=== PATIENT | female | born 1940 | race Caucasian/White ===

== ENCOUNTER 2019-12-21 15:48 | Emergency (ER) | payer MEDICARE, MEDICAID, SELFPAY ==
[2019-12-21 15:59] VITALS: BP 106/60; PULSE 73; RESP 14; TEMP 36.6; O2SAT 99; BMI 23.2
[2019-12-21 17:57] LABS: Basophils % 0.6 %; Eosinophils # 0.1 10^3/uL (0.0-0.8); Eosinophils % 1.6 %; Hematocrit 40.9 % (37.0-47.0); Hemoglobin 13.3 g/dL (11.5-15.3); Lymphocytes # 1.8 10^3/uL (0.8-4.8); Lymphocytes % 28.4 %; Mean Corpuscular HGB Conc 32.5 g/dL (30.0-36.0); Mean Corpuscular Hemoglobin 28.9 pg (28.0-34.0); Mean Corpuscular Volume 88.7 fL (81-99); Mean Platelet Volume 11.1 fL (7.4-10.4); Monocytes # 0.4 10^3/uL (0.2-0.9); Monocytes % 6.1 %; Neutrophils # 4.05 10^3/uL (1.8-7.7); Neutrophils % 63.1 %; Nucleated Red Blood Cells % 0 %; Platelet Count 211 10^3/cmm (130-400); Red Blood Count 4.61 10^6/uL (4.1-5.3); Red Cell Distribution Width 14.5 % (12.1-15.1); White Blood Count 6.4 10^3/uL (4.0-10.0)
[2019-12-21 18:22] LABS: Alanine Aminotransferase 10 U/L (0-33); Albumin Level 3.9 g/dL (3.5-5.2); Alkaline Phosphatase 90 IU/L (35-105); Anion Gap 15.7 (5-19); Aspartate Amino Transferase 21 U/L (0-32); Blood Urea Nitrogen 20 mg/dL (8-23); Calcium 9.7 mg/dL (8.5-10.5); Carbon Dioxide 26 mmol/L (22-29); Chloride 99 mmol/L (98-107); Globulin 3.2 g/dL (1.3-4.6); Glucose 193 mg/dL (65-115); Lipase 64 U/L (13-60); Osmolality Calculated 290 mOsm/kg (285-295); Potassium 4.7 mmol/L (3.5-5.1); Sodium 136 mmol/L (136-145); Total Bilirubin 0.5 mg/dL (0.15-1.2); Total Protein 7.1 g/dL (6.6-8.7)
--- NOTE | 2019-12-21 18:43 | CTR_ITS ---
PROCEDURE INFORMATION: Exam: CT Abdomen And Pelvis Without Contrast Exam date and time: 12/21/2019 7:41 PM Age: 79 years old Clinical indication: Nausea; Abdominal pain; Localized; Lower; Prior surgery; Surgery type: Tubal TECHNIQUE: Imaging protocol: Computed tomography of the abdomen and pelvis without contrast. Sagittal and coronal reformatted images were created and reviewed. Radiation optimization: All CT scans at this facility use at least one of these dose optimization techniques: automated exposure control; mA and/or kV adjustment per patient size (includes targeted exams where dose is matched to clinical indication); or iterative reconstruction. COMPARISON: CT abdomen pelvis w con* [id number] 02/14/2019 10:52 AM RADIATION DOSE METRICS: Total DLP (mGy-cm): 304.68 FINDINGS: Limitations: Evaluation of solid organs and vasculature is limited without intravenous contrast. Lungs: Visualized lungs are clear. Stable scarring and bronchiectatic changes in both visualized right and left lower lobes. Pleural space: No pleural effusion. Heart: Visualized portions of the heart are mildly enlarged. Liver: Multiple calcified granulomas in the liver are stable.The spleen is unremarkable. Gallbladder and bile ducts: Mildly increased density layering in the gallbladder. No biliary ductal dilatation. Pancreas: The pancreas is unremarkable. No pancreatic ductal dilatation. Spleen: The spleen is unremarkable. Adrenals: The right and left adrenal glands are unremarkable. Kidneys and ureters: The right and left kidneys are unremarkable. The right and left ureters are unremarkable. Stomach and bowel: There is moderate wall thickening with surrounding mild to moderate inflammatory change of the proximal/mid sigmoid colon. Mobile cecum extending into the left mid abdomen. No acute abnormality in the small bowel. No acute abnormality in the stomach. Appendix: Appendix not definitely visualized. No inflammatory changes in the pericecal region however. Intraperitoneal space: No free intraperitoneal air. No ascites. No loculated fluid collections to suggest an abscess. Surgical clip in the left groin is unchanged. Vasculature: Moderate atherosclerotic calcification in the coronary arteries. Moderate atherosclerotic changes in the visualized arteries. No evidence for aortic aneurysm. Lymph nodes: No lymphadenopathy. Urinary bladder: Diffuse, mild wall thickening of the bladder. Reproductive: Patient has had a previous hysterectomy. The right ovary is unremarkable. Stable 8.7 mm follicle in the left ovary. Bones/joints: Poststernotomy changes in the chest are partially visualized. Bones are diffusely osteopenic. Mild degenerative changes at both the right and left hips. Mild degenerative changes of the right and left sacroiliac joints. Multilevel degenerative changes of varying severity in the visualized spine. Soft tissues: No acute abnormality in the extra-abdominal soft tissues. CT/CT abdomen pelvis wo con [id number] IMPRESSION: 1. Findings consistent with moderate colitis in the proximal/mid sigmoid colon. 2. Mildly increased density layering in the gallbladder. This could represent noncalcified gallstones and/or gallbladder sludge. Ultrasound of the gallbladder may be obtained for further evaluation as clinically indicated. 3. Diffuse, mild wall thickening of the bladder. In the correct clinical setting, this may suggest cystitis. Recommend correlation with laboratory findings. Alternatively, this may be secondary to chronic outlet obstruction. 4. Mobile cecum extending into the left mid abdomen. 5. Incidental/nonacute findings are listed in the report. Radiation Dose CTDIVOL = (mGy): DLP = 304.68 (mGy-cm)
--- NOTE | 2019-12-21 18:44 | ED_ITS ---
HPI - Abdominal Pain General: Chief Complaint: Abdominal Pain Stated Complaint: LOWER ABD CRAMPS RADIATING TO BACK Time Seen by Provider: 12/21/19 18:40 History of Present Illness: HPI narrative: Arrives with a history of abdominal pain over the last few days was seen by her primary care provider and put on antibiotics pain is only worsened not improved. Patient has pain is worse with laying down and moving has severe cramping. Radiates to her back patient denies any vomiting fever chills or dysuria MD elicited complaint: abdominal pain Pertinent past history: constipation Onset (ago): day(s) Pain Consistency: constant Location: Diffuse Severity: moderate Quality: cramping and aching Radiation: back Migration to: no migration Exacerbating factors: movement Relieving factors: other (Sitting up) Context: recent antibiotic use Associated Symptoms: Reports no associated symptoms; Denies chills, fever(s), nausea and vomiting Review of Systems Const: Denies: fever(s), chills or body aches Eyes: Denies: change in vision or blurry vision ENMT: Denies: throat pain or nasal congestion Card: Denies: chest pain or dyspnea on exertion Resp: Denies: dyspnea, productive cough or non-productive cough GI: Reports: abdominal pain; Denies: nausea or vomiting Musc: Denies: extremity pain Skin/Breast: Denies: rash Neuro: Denies: headache(s) Psych: Denies: anxiety or depression Dominguez/Lymph: Denies: easy bruising PFS ED PFSH: Medical History (Updated 12/21/19 @ 20:38 by ARLEY Carlson) ASHD (arteriosclerotic heart disease) Atrial fibrillation Diabetes Dyslipidemia HTN (hypertension) Surgical History S/P CABG (coronary artery bypass graft) Family History Other Diabetes Stroke Social History Smoking and tobacco status: never smoked Household members: children Marital status: / Physical Exam Const: COMMON NORMALS: no acute distress, average body habitus and patient oriented x3 HENMT: COMMON NORMALS: normocephalic HEAD & SCALP: normal to inspection and normocephalic FACE & SINUS: normal facial exam Eye: COMMON NORMALS: conjunctivae normal GENERAL EYE: appearance normal, both eyes and all related structures CONJUNCTIVA: Yes conjunctivae normal Neck/C-Spine: COMMON NORMALS: no JVD Chest: COMMONS NORMALS: normal inspection of the chest Resp: COMMON NORMALS: normal respiratory effort and clear to auscultation bilaterally AUSCULTATION: clear to auscultation bilaterally Cardio: COMMON NORMALS: no JVD, regular rate and regular rhythm RATE: regular rate RHYTHM: regular rhythm GI: COMMON NORMALS: Normal to inspection, nondistended, normoactive bowel sounds present PALPATION: Yes Tenderness to palpation present (GI) Details: LLQ and RLQ Extremity: COMMON NORMALS: normal to inspection and full ROM Neuro: COMMON NORMALS: patient oriented x3 Course Vital Signs: Vital signs: Vital Signs Temperature 97.8 F 12/21/19 15:59 Pulse Rate 64 12/21/19 21:00 Respiratory Rate 18 12/21/19 21:00 Blood Pressure 154/98 12/21/19 21:00 Pulse Oximetry 98 12/21/19 21:00 MDM - Abdominal Pain MDM Narrative: Medical decision making narrative: Discussed results of the CT results with patient patient that she has has bouts 2-3 times a year she said this 1 does seem to last longer she said antibiotics were not helping this time. Advised patient to follow-up with her provider repeat lab test to have radiology test done discussed chronic medication for help Differential Diagnosis: Differential diagnosis abdominal pain: Likely abdominal pain, constipation, diverticulitis and small bowel obstruction Lab Data: Labs: Lab Results 12/21/19 12/21/19 12/21/19 Range/Units 17:44 17:44 19:05 WBC 6.4 (4.0-10.0) 10^3/ uL RBC 4.61 (4.1-5.3) 10^6/u L Hgb 13.3 (11.5-15.3) g/dL Hct 40.9 (37.0-47.0) % MCV 88.7 (81-99) fL MCH 28.9 (28.0-34.0) pg MCHC 32.5 (30.0-36.0) g/dL RDW 14.5 (12.1-15.1) % Plt Count 211 (130-400) 10^3/c mm MPV 11.1 H (7.4-10.4) fL Neut % (Auto) 63.1 % Lymph % (Auto) 28.4 % [place] % (Auto) 6.1 % Eos % (Auto) 1.6 % Baso % (Auto) 0.6 % Neut # (Auto) 4.05 (1.8-7.7) 10^3/u L Lymph # (Auto) 1.8 (0.8-4.8) 10^3/u L [place] # (Auto) 0.4 (0.2-0.9) 10^3/u L Eos # (Auto) 0.1 (0.0-0.8) 10^3/u L Baso # (Auto) 0.0 (0.0-0.1) 10^3/u L Nucleated RBC % (a uto) 0 % Nucleated RBCs # 0.0 /100WBC Sodium 136 (136-145) mmol/L Potassium 4.7 (3.5-5.1) mmol/L Chloride 99 (98-107) mmol/L Carbon Dioxide 26 (22-29) mmol/L Anion Gap 15.7 (5-19) BUN 20 (8-23) mg/dL Creatinine 1.8 H (0.5-0.9) mg/dL GFR Calculation Not Reportable Glucose 193 H (65-115) mg/dL Calculated Osmolal ity 290 (285-295) mOsm/k g Calcium 9.7 (8.5-10.5) mg/dL Total Bilirubin 0.5 (0.15-1.2) mg/dL AST 21 (0-32) U/L ALT 10 (0-33) U/L Alkaline Phosphata se 90 (35-105) IU/L Total Protein 7.1 (6.6-8.7) g/dL Albumin 3.9 (3.5-5.2) g/dL Globulin 3.2 (1.3-4.6) g/dL Lipase 64 H (13-60) U/L Urine Color Straw (Yellow) Urine Appearance Clear (CLEAR) Urine pH 6.5 (5-7) Ur Specific Gravit y 1.005 (1.005-1.030) Urine Protein Neg (Negative) Urine Glucose (UA) Norm (Normal) Urine Ketones Negative (Negative) Urine Blood Trace H (Negative) Urine Nitrate Negative (Negative) Urine Bilirubin Neg (Negative) Urine Urobilinogen Norm (Negative) mg/dL Ur Leukocyte Ginny ase Negative (Negative) Urine RBC 0-4 H (0-2) /hpf Urine WBC 10-15 H (0-5) /hpf Ur Squamous Epith Cells 0-4 H (0-5) /hpf Amorphous Sediment Not Reportable Urine Bacteria Trace (NONE) /hpf Discharge Plan Discharge Patient Disposition: Home Clinical Impression: Colitis Condition: Stable Prescriptions: New metoclopramide HCl 10 mg tablet 10 mg PO QID 7 Days Qty: 28 RF: 0 Zofran 4 mg tablet 4 mg PO Q8H PRN (Reason: nausea and vomiting) 3 Days Qty: 14 RF: 0 No Action omega-3 fatty acids [Fish Oil Concentrate] 1,000 mg capsule 1,000 mg PO DAILY RF: 0 Lantus U-100 Insulin 100 unit/mL solution See Rx Instructions SUBCUT DAILY RF: 0 magnesium oxide 400 mg magnesium tablet 200 mg PO DAILY RF: 0 aspirin [Adult Low Dose Aspirin] 81 mg tablet,delayed release (DR/EC) 81 mg PO DAILY RF: 0 rosuvastatin [Crestor] 40 mg tablet 40 mg PO DAILY RF: 0 docusate sodium 100 mg capsule 100 mg PO DAILY PRN (Reason: Constipation) RF: 0 lisinopril 30 mg tablet 30 mg PO DAILY RF: 0 Multiple Vitamins Tablet 1 tab PO DAILY RF: 0 latanoprost 0.005 % drops 1 drp ophthalmic (eye) BEDTIME RF: 0 clindamycin HCl 300 mg capsule 300 mg PO TID RF: 0 ondansetron HCl 4 mg tablet 4 - 8 mg PO Q8H PRN (Reason: Nausea) RF: 0 Discharge Orders: Discharge Order (Routine); Ordered 12/21/19 Ordered By: New Payne Referrals: Zuly Franklin FNP [Primary Care Provider] - Discharge Diet: Advance as tolerated Discharge Activity: Increase activity as tolerated Patient Instructions: Irritable Bowel Syndrome (ED) Activity Restrictions/Additional Instructions: Follow-up with medical provider as directed. Take medications as prescribed. Return to the ER or your medical provider if condition worsens. Please read and understand discharge instructions. If any questions ask please. Follow-up with your provider next week go over labs go over radiology see if you need a gallbladder ultrasound repeat lab test next week Discharge Date/Time: 12/21/19 21:00 Coding Level of Care Code ED Nuclear Licensing Engineer for Chg Fwd Exam Comprehensive
[2019-12-21 19:21] LABS: Add Urine Microscopic? YES; Bilirubin Urine Neg (Negative); Blood Urine Trace (Negative); Glucose Urine UA Norm (Normal); Ketones Urine Negative (Negative); Leukocyte Esterase Urine Negative (Negative); Nitrate Urine Negative (Negative); Protein Urine Neg (Negative); Specific Gravity, Urine 1.005 (1.005-1.030); Urine Appearance Clear (CLEAR); Urine Color Straw (Yellow); Urobilinogen Urine Norm (Negative); pH Urine 6.5 (5-7)
[2019-12-21 19:23] LABS: Add Urine Culture? No; Bacteria Urine TRACE /hpf; RBC Urine 0-4 /hpf (0-2); Squamous Epithelial Cell Urine 0-4 /hpf (0-5)
[2019-12-21 19:28] VITALS: BP 148/93; PULSE 71; RESP 18; O2SAT 99
[2019-12-21] MEDS: dicyclomine 10 mg Capsule PO (20:59)
[2019-12-21 21:00] VITALS: BP 154/98; PULSE 64; RESP 18; O2SAT 98
== END 2019-12-21 21:00 | disposition home or self-care (01) ==
PROVIDERS: Emergency Provider Nurse Practitioner Family; Family Provider Nurse Practitioner Family; PCP Nurse Practitioner Family
DX: K52.9 Noninfective gastroenteritis and colitis, unspecified (principal); Z79.82 Long term (current) use of aspirin; Z79.899 Other long term (current) drug therapy; I48.91 Unspecified atrial fibrillation; E11.9 Type 2 diabetes mellitus without complications; E78.5 Hyperlipidemia, unspecified; I10 Essential (primary) hypertension; Z95.1 Presence of aortocoronary bypass graft
CPT/HCPCS: 12345; 36415; 74176; 80053; 81001; 83690; 85025; 99282; 99283

== ENCOUNTER → 2021-06-20 10:34 | Outpatient (BNVA) | payer MEDICARE, MEDICAID, SELFPAY | PROVIDERS: Family Provider Nurse Practitioner Family; PCP Nurse Practitioner Family; Referring Provider Nurse Practitioner Family; Visit Provider Orthopaedic Surgery | DX: S80.02XA Contusion of left knee, initial encounter (principal); W19.XXXA Unspecified fall, initial encounter | CPT/HCPCS: 73562; 99203 ==

== ENCOUNTER → 2021-07-13 15:08 | Outpatient (BNVA) | payer MEDICARE, MEDICAID, SELFPAY | PROVIDERS: Family Provider Nurse Practitioner Family; PCP Nurse Practitioner Family; Visit Provider Internal Medicine | DX: I48.91 Unspecified atrial fibrillation (principal); I25.10 Atherosclerotic heart disease of native coronary artery without angina pectoris; E11.9 Type 2 diabetes mellitus without complications; I10 Essential (primary) hypertension; E78.5 Hyperlipidemia, unspecified; I73.9 Peripheral vascular disease, unspecified; Z79.4 Long term (current) use of insulin | CPT/HCPCS: 99213; 99214 ==

== ENCOUNTER 2022-03-07 13:24 | Emergency (ER) | payer MEDICARE, MEDICAID, SELFPAY ==
[2022-03-07 13:26] VITALS: BP 92/53; PULSE 64; RESP 14; TEMP 36.6; O2SAT 98; BMI 34.5
--- NOTE | 2022-03-07 13:35 | ED_ITS ---
HPI - General Adult General: Chief complaint: General Medical Stated complaint: ABDOMINAL CRAMPING Time Seen by Provider: 03/07/22 13:35 History of Present Illness: Ms. Baird is an 81-year-old lady with history of diabetes, hypertension, atrial fibrillation, dyslipidemia presenting to the emergency department due to abdominal pain. She reports a few day history of generalized malaise associated with abdominal discomfort and diarrhea. She notes lightheadedness. Pain is cramping in quality and moderate in intensity as well as intermittent. No other specific changes in health, exacerbating, or alleviating factors identified. Onset (ago): day(s) Location: abdomen Severity: moderate Quality: other Pain Consistency: constant Relieving factors: none Exacerbating factors: eating Associated symptoms: Reports malaise, weakness and other Review of Systems General: Reports: 10 or more systems reviewed and unremarkable except in HPI and below Const: Reports: malaise PFS ED PFSH: Medical History ASHD (arteriosclerotic heart disease) Atrial fibrillation Diabetes Dyslipidemia HTN (hypertension) Surgical History S/P CABG (coronary artery bypass graft) Family History Other Diabetes Stroke Social History Smoking and tobacco status: never smoked Alcohol intake: never Household members: children Marital status: / Physical Exam Const: COMMON NORMALS: alert GENERAL APPEARANCE: cooperative and well developed HENMT: COMMON NORMALS: normocephalic and atraumatic HEAD & SCALP: normocephalic and atraumatic Eye: COMMON NORMALS: conjunctivae normal CONJUNCTIVA: Yes conjunctivae normal SCLERA: sclerae normal Neck/C-Spine: COMMON NORMALS: supple GENERAL: Yes trachea midline Resp: COMMON NORMALS: normal respiratory effort and clear to auscultation bilaterally EFFORT & INSPECTION: Yes able to speak in complete sentences AUSCULTATION: clear to auscultation bilaterally Cardio: COMMON NORMALS: regular rate and regular rhythm RATE: regular rate RHYTHM: regular rhythm GI: COMMON NORMALS: Soft to palpation PALPATION: Yes Soft to palpation, Yes Tenderness to palpation present (GI), No Guarding due to palpation present (GI) and No Rigid due to palpation PERCUSSION: normal to percussion Extremity: GENERAL: Yes normal exam except as noted and No edema Neuro: COMMON NORMALS: moves all extremities SENSORIUM/ORIENTATION: Yes alert and No Orientation impaired Psych: COMMON NORMALS: mental status grossly normal and Normal thought process present THOUGHT PROCESS: Normal thought process present Course Vital Signs: Vital signs: Vital Signs Temperature 97.9 F 03/07/22 13:26 Pulse Rate 67 03/07/22 18:00 Respiratory Rate 20 H 03/07/22 18:00 Blood Pressure 147/60 03/07/22 18:00 Pulse Oximetry 97 03/07/22 18:00 MDM - General Adult Medical Decision Making 81-year-old lady presented with abdominal symptoms associated with generalized malaise. Exam as above. No evidence of acute surgical abdomen or peritonitis. Patient is nontoxic. EKG notable for sinus rhythm, no STEMI. Labs with no leukocytosis, hemoconcentration compared to prior. Metabolic panel without acute electrolyte derangement. Delta troponin is negative. No UTI given squamous epithelial contamination. CT imaging notable for mild colitis. Incidental findings discussed with patient. Patient feels improved with IV fluids and she is able to tolerate p.o. take. Most likely etiology of patient's symptoms is colitis. The results of ED evaluation were discussed with the patient including prescriptions and/or symptomatic cares (if applicable) including appropriate and responsible use, followup plan, and return precautions. The patient verbalized understanding and felt safe for discharge. Medical Records I reviewed the patient's medical records. Lab Data I reviewed the patient's lab results. 03/07/22 14:12 03/07/22 14:12 Radiology Impressions Abdomen/Pelvis CT 03/07/22 14:54 IMPRESSION: 1. Findings consistent with mild colitis in the transverse colon. No pneumatosis. 2. Diffuse, mild wall thickening of the bladder. In the correct clinical setting, this may suggest cystitis. Recommend correlation with laboratory findings. Alternatively, this may be secondary to chronic outlet obstruction. 3. Incidental/nonacute findings are listed in the report. Laboratory Results WBC 9.5 10^3/uL (4.0-10.0) 03/07/22 14:12 RBC 5.39 10^6/uL (4.1-5.3) H 03/07/22 14:12 Hgb 16.9 g/dL (11.5-15.3) H 03/07/22 14:12 Hct 51.0 % (37.0-47.0) H 03/07/22 14:12 MCV 94.6 fl (81-99) 03/07/22 14:12 MCH 31.4 pg (28.0-34.0) 03/07/22 14:12 MCHC 33.1 g/dL (30.0-36.0) 03/07/22 14:12 RDW 12.3 % (12.1-15.1) 03/07/22 14:12 Plt Count 218 10^3/cmm (130-400) 03/07/22 14:12 MPV 11.5 fL (7.4-10.4) H 03/07/22 14:12 Neut % (Auto) 76.5 % 03/07/22 14:12 Lymph % (Auto) 16.8 % 03/07/22 14:12 [place] % (Auto) 5.3 % 03/07/22 14:12 Eos % (Auto) 0.7 % 03/07/22 14:12 Baso % (Auto) 0.5 % 03/07/22 14:12 Neut # (Auto) 7.26 10^3/uL (1.8-7.7) 03/07/22 14:12 Lymph # (Auto) 1.6 10^3/uL (0.8-4.8) 03/07/22 14:12 [place] # (Auto) 0.5 10^3/uL (0.2-0.9) 03/07/22 14:12 Eos # (Auto) 0.1 10^3/uL (0.0-0.8) 03/07/22 14:12 Baso # (Auto) 0.1 10^3/uL (0.0-0.1) 03/07/22 14:12 Nucleated RBC % (auto) 0 % 03/07/22 14:12 Nucleated RBCs # 0.0 /100WBC 03/07/22 14:12 Sodium 139 mmol/L (136-145) 03/07/22 14:12 Potassium 4.6 mmol/L (3.5-5.1) 03/07/22 14:12 Chloride 103 mmol/L (98-107) 03/07/22 14:12 Carbon Dioxide 25 mmol/L (22-29) 03/07/22 14:12 Anion Gap 15.6 (5-19) 03/07/22 14:12 BUN 21 mg/dL (8-23) 03/07/22 14:12 Creatinine 1.4 mg/dL (0.5-0.9) H 03/07/22 14:12 GFR Calculation Not Reportable 03/07/22 14:12 Glucose 151 mg/dL (65-115) H 03/07/22 14:12 Calculated Osmolality 294 mOsm/kg (285-295) 03/07/22 14:12 Lactate 1.9 mmol/L (0.5-2.2) 03/07/22 14:12 Calcium 9.7 mg/dL (8.5-10.5) 03/07/22 14:12 Total Bilirubin 0.6 mg/dL (0.15-1.2) 03/07/22 14:12 AST 24 U/L (0-32) 03/07/22 14:12 ALT 13 U/L (0-33) 03/07/22 14:12 Alkaline Phosphatase 98 U/L (35-105) 03/07/22 14:12 Troponin T Baseline 15 ng/L (0-10) H 03/07/22 14:12 Troponin T 120 Minute 13.88 ng/L (0-10) H 03/07/22 16:36 Delta Troponin T -1.12 ABS# (0-10) L 03/07/22 16:36 Total Protein 6.7 g/dL (6.6-8.7) 03/07/22 14:12 Albumin 3.8 g/dL (3.5-5.2) 03/07/22 14:12 Globulin 2.9 g/dL (1.3-4.6) 03/07/22 14:12 Lipase 55 U/L (13-60) 03/07/22 14:12 Urine Color Yellow (Yellow) 03/07/22 17:14 Urine Appearance Clear (CLEAR) 03/07/22 17:14 Urine pH 5 (5-7) 03/07/22 17:14 Ur Specific [place] 1.020 (1.005-1.030) 03/07/22 17:14 Urine Protein 1+ (Negative) H 03/07/22 17:14 Urine Glucose (UA) Trace (Normal) H 03/07/22 17:14 Urine Ketones Negative (Negative) 03/07/22 17:14 Urine Blood Neg (Negative) 03/07/22 17:14 Urine Nitrate Negative (Negative) 03/07/22 17:14 Urine Bilirubin Neg (Negative) 03/07/22 17:14 Urine Urobilinogen Norm mg/dL (Negative) 03/07/22 17:14 Ur Leukocyte Esterase 2+ (Negative) H 03/07/22 17:14 Urine RBC None /hpf (0-2) 03/07/22 17:14 Urine WBC 0-4 /hpf (0-5) H 03/07/22 17:14 Ur Squamous Epith Cells 5-10 /hpf (0-5) H 03/07/22 17:14 Amorphous Sediment Not Reportable 03/07/22 17:14 Urine Bacteria Trace /hpf (NONE) 03/07/22 17:14 Discharge Plan Discharge Patient Disposition: Home Clinical Impression: Colitis, Dehydration Condition: Stable Prescriptions: New ondansetron 4 mg tablet,disintegrating 4 mg PO Q8H PRN (Reason: nausea and vomiting) Qty: 15 0RF No Action Januvia 50 mg tablet 50 mg PO DAILY ferrous sulfate 325 mg (65 mg iron) tablet 325 mg PO DAILY Lantus U-100 Insulin 100 unit/mL solution 26 unit SUBCUT DAILY magnesium oxide 400 mg magnesium tablet 200 mg PO DAILY aspirin [Adult Low Dose Aspirin] 81 mg tablet,delayed release (DR/EC) 81 mg PO DAILY rosuvastatin [Crestor] 40 mg tablet 40 mg PO DAILY docusate sodium 100 mg capsule 100 mg PO DAILY PRN (Reason: Constipation) lisinopril 30 mg tablet 30 mg PO DAILY Xarelto 20 mg tablet 20 mg PO DAILY Qty: 90 3RF Rx Instructions: must administer with evening meal multivitamin [Multiple Vitamins] Tablet 1 tab PO DAILY latanoprost 0.005 % drops 1 drp ophthalmic (eye) BEDTIME omega-3 fatty acids 1,000 mg Capsule 1,000 mg PO DAILY Discharge Orders: Discharge ED (Routine); Ordered 03/07/22 Ordered By: Vance Le Referrals: Zuly Franklin FNP [Primary Care Provider] - Discharge Diet: Advance as tolerated and Clear Liquid Discharge Activity: Increase activity as tolerated Patient Instructions: Dehydration (ED), Colitis (ED) Activity Restrictions/Additional Instructions: Thank you for visiting the emergency department. You were seen and evaluated for abdominal symptoms and generalized illness. The most likely cause of the symptoms is colitis which will be treated with antibiotics. Please ensure that you are staying hydrated. Please follow-up with your primary care provider. Return to the emergency department for worsening symptoms or anything else that you are concerned about a feel needs emergency department evaluation. Coding Level of Care Code ED High Pressure Operator for Blake Gould
--- NOTE | 2022-03-07 13:52 | ECG_ITS ---
[facility] Test Date: 2022-03-07 Pat Name: Yas Baird Department: Room: Gender: Female Darkroom Technician: : 1940 Requested By: Vance Le Order Number: [id number] Jaylon MD: Alexa Meyers M.D. Measurements Intervals [place] Rate: 71 P: 63 [place]: 142 QRS: 36 QRSD: 77 T: 69 QT: 388 QTc: 424 Interpretive Statements SINUS RHYTHM NONSPECIFIC ST & T-WAVE ABNORMALITY Compared to ECG 02/14/2019 15:14:24 Sinus bradycardia no longer present T-wave abnormality still present Electronically Signed On 03-08-2022 9:11:14 MEDICAID SPECIALIST by Alexa Meyers M.D. [id number]
[2022-03-07 14:35] VITALS: BP 98/65; PULSE 73; RESP 16; O2SAT 93
--- NOTE | 2022-03-07 14:54 | CTR_ITS ---
PROCEDURE INFORMATION: Exam: CT Abdomen And Pelvis Without Contrast Exam date and time: 03/07/2022 3:41 PM Age: 81 years old Clinical indication: Abdominal pain; Generalized; Additional info: Abd pain TECHNIQUE: Imaging protocol: Computed tomography of the abdomen and pelvis without contrast. Sagittal and coronal reformatted images were created and reviewed. Radiation optimization: All CT scans at this facility use at least one of these dose optimization techniques: automated exposure control; mA and/or kV adjustment per patient size (includes targeted exams where dose is matched to clinical indication); or iterative reconstruction. COMPARISON: CT abdomen pelvis wo con [id number] 12/21/2019 7:45 PM RADIATION DOSE METRICS: Total DLP (mGy-cm): 391.86 FINDINGS: Limitations: Evaluation of solid organs and vasculature is limited without intravenous contrast. Lungs: Calcified granuloma in the right middle lobe. Visualized lungs are clear. Cylindrical bronchiectasis in the right and left lower lobe is stable. Pleural spaces: No pleural effusion. Heart: Visualized heart is normal in size. Coronary arteries: .Moderate atherosclerotic calcification in the visualized coronary arteries. Liver: Multiple calcified granulomas in the liver are stable. Gallbladder and bile ducts: The gallbladder is unremarkable. No biliary ductal dilatation. Pancreas: Few pancreatic parenchymal calcifications are stable, suggesting sequela of chronic pancreatitis. Alternatively, this may be due to granulomatous change. No pancreatic atrophy. No pancreatic ductal dilatation. Spleen: Multiple calcified granulomas in the spleen are stable. Adrenal glands: Stable low-density nodules in the right and left adrenal glands measuring 0.8 x 1.0 cm on the right and 1.0 x 1.2 cm on the left (series 3, images 20 and 21). Findings are consistent with stable adrenal adenomas. Kidneys and ureters: The right and left kidneys are unremarkable. The right and left ureters are unremarkable. Stomach and bowel: There is mild wall thickening with surrounding mild inflammation of the transverse colon. No pneumatosis. No acute abnormality in the stomach. No acute abnormality in the small bowel. Appendix: The appendix is visualized and is unremarkable. No findings to suggest acute appendicitis. Intraperitoneal space: No free intraperitoneal air. No ascites. No loculated fluid collections to suggest an abscess. Vasculature: Stable moderate atherosclerotic calcifications in the visualized arteries. No evidence for aortic aneurysm. Lymph nodes: No lymphadenopathy. Urinary bladder: Diffuse, mild wall thickening of the bladder. Reproductive: The uterus, right ovary, and left ovary are unremarkable. Bones/joints: Bones are diffusely osteopenic. Degenerative changes in the spine, sacroiliac joints, and hips. Poststernotomy changes in the chest. Osseous findings are stable. Soft tissues: No acute abnormality in the extra-abdominal soft tissues. CT/CT abdomen pelvis wo con [id number] IMPRESSION: 1. Findings consistent with mild colitis in the transverse colon. No pneumatosis. 2. Diffuse, mild wall thickening of the bladder. In the correct clinical setting, this may suggest cystitis. Recommend correlation with laboratory findings. Alternatively, this may be secondary to chronic outlet obstruction. 3. Incidental/nonacute findings are listed in the report.
[2022-03-07 14:59] LABS: Basophils # 0.1 10^3/uL (0.0-0.1); Basophils % 0.5 %; Eosinophils # 0.1 10^3/uL (0.0-0.8); Eosinophils % 0.7 %; Hemoglobin 16.9 g/dL (11.5-15.3); Lymphocytes # 1.6 10^3/uL (0.8-4.8); Lymphocytes % 16.8 %; Mean Corpuscular HGB Conc 33.1 g/dL (30.0-36.0); Mean Corpuscular Hemoglobin 31.4 pg (28.0-34.0); Mean Corpuscular Volume 94.6 fl (81-99); Mean Platelet Volume 11.5 fL (7.4-10.4); Monocytes # 0.5 10^3/uL (0.2-0.9); Monocytes % 5.3 %; Neutrophils # 7.26 10^3/uL (1.8-7.7); Neutrophils % 76.5 %; Nucleated Red Blood Cells % 0 %; Platelet Count 218 10^3/cmm (130-400); Red Blood Count 5.39 10^6/uL (4.1-5.3); Red Cell Distribution Width 12.3 % (12.1-15.1); White Blood Count 9.5 10^3/uL (4.0-10.0)
[2022-03-07] MEDS: sodium chloride 0.9% 1,000 ML 999 ML IV (15:06)
[2022-03-07 15:08] LABS: Troponin(5th) Baseline 15 ng/L (0-10)
[2022-03-07 15:09] LABS: Lactate (Lactic Acid level) 1.9 mmol/L (0.5-2.2)
[2022-03-07 15:10] LABS: Alanine Aminotransferase 13 U/L (0-33); Albumin Level 3.8 g/dL (3.5-5.2); Alkaline Phosphatase 98 U/L (35-105); Aspartate Amino Transferase 24 U/L (0-32); Blood Urea Nitrogen 21 mg/dL (8-23); Calcium 9.7 mg/dL (8.5-10.5); Carbon Dioxide 25 mmol/L (22-29); Chloride 103 mmol/L (98-107); Globulin 2.9 g/dL (1.3-4.6); Glucose 151 mg/dL (65-115); Lipase 55 U/L (13-60); Osmolality Calculated 294 mOsm/kg (285-295); Sodium 139 mmol/L (136-145); Total Bilirubin 0.6 mg/dL (0.15-1.2); Total Protein 6.7 g/dL (6.6-8.7)
[2022-03-07 15:12] LABS: Anion Gap 15.6 (5-19); Potassium 4.6 mmol/L (3.5-5.1)
[2022-03-07 15:35] VITALS: BP 105/48; PULSE 66; RESP 14; O2SAT 98
--- NOTE | 2022-03-07 15:39 | ECG_ITS ---
[facility] Test Date: 2022-03-07 Pat Name: Yas Baird Department: Room: Gender: Female Torpedo Man: : 1940 Requested By: Vance Le Order Number: [id number] Jaylon MD: Alexa Meyers M.D. Measurements Intervals [place] Rate: 68 P: 60 NV: 148 QRS: 27 QRSD: 78 T: 74 QT: 400 QTc: 427 Interpretive Statements SINUS RHYTHM WITH OCCASIONAL SUPRAVENTRICULAR PREMATURE COMPLEXES LOW QRS VOLTAGE IN PRECORDIAL LEADS [QRS DEFLECTION < 1.0 mV IN CHEST LEADS] NONSPECIFIC ST & T-WAVE ABNORMALITY Compared to ECG 03/07/2022 13:52:44 Low QRS voltage now present T-wave abnormality still present Electronically Signed On 03-08-2022 9:22:39 CATERING SALES MANAGER by Alexa Meyers M.D. [email or web address]
[2022-03-07 17:00] VITALS: BP 100/64; PULSE 60; RESP 15; O2SAT 96
[2022-03-07 17:29] LABS: Troponin 5 2HR 13.88 ng/L (0-10)
[2022-03-07 17:31] LABS: Troponin 5 2HR Delta -1.12 ABS# (0-10)
[2022-03-07 17:32] VITALS: BP 102/55; BP 107/69; BP 91/64; PULSE 71; PULSE 78; PULSE 87
[2022-03-07 17:37] LABS: Add Urine Microscopic? YES; Bilirubin Urine Neg (Negative); Blood Urine Neg (Negative); Glucose Urine UA Trace (Normal); Ketones Urine Negative (Negative); Leukocyte Esterase Urine 2+ (Negative); Nitrate Urine Negative (Negative); Protein Urine 1+ (Negative); Urine Appearance Clear (CLEAR); Urine Color Yellow (Yellow); Urobilinogen Urine Norm (Negative); pH Urine 5 (5-7)
[2022-03-07 17:38] LABS: Add Urine Culture? No; Bacteria Urine TRACE /hpf; WBC Urine 0-4 /hpf (0-5)
[2022-03-07 18:00] VITALS: BP 147/60; PULSE 67; RESP 20; O2SAT 97
== END 2022-03-07 18:07 | disposition home or self-care (01) ==
PROVIDERS: Emergency Provider Emergency Medicine; PCP Nurse Practitioner Family
DX: E86.0 Dehydration (principal); E11.9 Type 2 diabetes mellitus without complications; I10 Essential (primary) hypertension; I48.91 Unspecified atrial fibrillation; E78.5 Hyperlipidemia, unspecified
CPT/HCPCS: 36415; 74176; 80053; 81001; 83605; 83690; 84484; 85025; 87040; 93005; 96360; 99285; J7030

== ENCOUNTER → 2022-04-12 13:53 | Outpatient (BNVA) | payer MEDICARE, MEDICAID, SELFPAY | PROVIDERS: PCP Nurse Practitioner Family; Visit Provider Internal Medicine | DX: I48.91 Unspecified atrial fibrillation (principal); I25.10 Atherosclerotic heart disease of native coronary artery without angina pectoris; E11.9 Type 2 diabetes mellitus without complications; Z79.4 Long term (current) use of insulin; I10 Essential (primary) hypertension; E78.5 Hyperlipidemia, unspecified; I73.9 Peripheral vascular disease, unspecified; Z95.1 Presence of aortocoronary bypass graft | CPT/HCPCS: 99214 ==

== ENCOUNTER → 2023-01-10 11:56 | Outpatient (BNVA) | payer MEDICARE, MEDICAID, SELFPAY | PROVIDERS: PCP Nurse Practitioner Family; Visit Provider Internal Medicine | DX: I48.91 Unspecified atrial fibrillation (principal); Z79.01 Long term (current) use of anticoagulants; I25.10 Atherosclerotic heart disease of native coronary artery without angina pectoris; E11.9 Type 2 diabetes mellitus without complications; Z79.4 Long term (current) use of insulin; I10 Essential (primary) hypertension; E78.5 Hyperlipidemia, unspecified; I73.9 Peripheral vascular disease, unspecified | CPT/HCPCS: 99214 ==

== ENCOUNTER 2023-03-21 23:02 | Emergency (ER) | payer MEDICARE, MEDICAID, SELFPAY ==
[2023-03-21 23:08] VITALS: BP 179/92; PULSE 70; RESP 17; TEMP 36.5; O2SAT 97
--- NOTE | 2023-03-21 23:15 | ED_ITS ---
HPI - GI Bleed 2 General: Chief complaint: GI Bleed Stated complaint: rectal bleeding Time Seen by Provider: 03/21/23 23:14 History of Present Illness: 82-year-old female comes in today for co mplaints of hemorrhoids. Patient reports some history of constipation. Patient reports sometimes she notices that her hemorrhoid comes out but then she usually it resolves back in on its own. Patient appears nontoxic. Patient does take MiraLAX in order to keep her bowels soft but has not used in over a week. Review of Systems 2 General: Reports: 10 or more systems reviewed and unremarkable except in HPI and below GI: Reports: rectal pain and hematochezia PFS ED 2 PFS: Medical History (Updated 03/21/23 @ 23:29 by ARLEY Bustamante) ASHD (arteriosclerotic heart disease) Diabetes HTN (hypertension) Dyslipidemia Atrial fibrillation Surgical History S/P CABG (coronary artery bypass graft) Family History Other Diabetes Stroke Social History Smoking and tobacco/nicotine status: never used tobacco/nicotine Alcohol intake: never Household members: children Marital status: / Physical Exam 2 Const: COMMON NORMALS: alert HENMT: COMMON NORMALS: normocephalic HEAD & SCALP: normocephalic MOUTH: Normal oral and palatal mucosa present Neck/C-Spine: COMMON NORMALS: full ROM Resp: COMMON NORMALS: normal respiratory effort Cardio: COMMON NORMALS: regular rate RATE: regular rate GI: RECTAL EXAM: abnormal sphincter tone positive decreased, Rectal prolapse and no fecal impaction Back/Pelvis: COMMON NORMALS: thoracic and lumbar spine normal to inspection Extremity: COMMON NORMALS: full ROM Neuro: SENSORIUM/ORIENTATION: Yes alert Skin: COMMON NORMALS: turgor normal GENERAL SKIN EXAM: turgor normal Course 2 Vital Signs: Vital signs: Vital Signs Temperature 97.7 F 03/21/23 23:08 Pulse Rate 70 03/21/23 23:08 Respiratory Rate 17 03/21/23 23:08 Blood Pressure 179/92 03/21/23 23:08 Pulse Oximetry 97 01/04/24 23:08 Oxygen Delivery Me thod Room Air 03/21/23 23:08 MDM - GI Bleed Medical Decision Making Patient came in today for concerns of a hemorrhoid. Patient reports that she felt something pop out of her rectum and was concerned because it did not reduce on its own. Patient states that sometimes she has noticed it before but usually it reduces on its own. Patient has noticed some mild blood. On exam it was noted that patient had a rectal prolapse. It reduced without difficulty. Patient does have some reduced rectal tone. Vital signs are normal. Differential diagnosis includes not limited to hemorrhoids, constipation, bowel obstruction, rectal prolapse. Recommended patient take MiraLAX daily or every other day in order to maintain soft stools to avoid straining and constipation. Lab Data 03/21/23 23:35 03/21/23 23:35 Laboratory Results WBC 6.94 10^3/uL (3.29-11.43) 03/21/23 23:35 RBC 4.27 10^6/uL (3.85-5.65) 03/21/23 23:35 Hgb 13.30 g/dL (11.27-16.99) 03/21/23 23:35 Hct 39.1 % (36-47) 03/21/23 23:35 MCV 91.6 fl (85-98) 03/21/23 23:35 MCH 31.1 pg (27-33) 03/21/23 23:35 MCHC 34.0 g/dL (30-55) 03/21/23 23:35 RDW 12.2 % (12.1-15.1) 03/21/23 23:35 Plt Count 165 10^3/cmm (157-399) 03/21/23 23:35 MPV 10.6 fL (7.4-10.4) H 03/21/23 23:35 Neut % (Auto) 69.7 % 03/21/23 23:35 Lymph % (Auto) 20.0 % 03/21/23 23:35 [place] % (Auto) 7.1 % 03/21/23 23:35 Eos % (Auto) 2.4 % 03/21/23 23:35 Baso % (Auto) 0.7 % 03/21/23 23:35 Neut # (Auto) 4.83 10^3/uL (1.8-7.7) 03/21/23 23:35 Lymph # (Auto) 1.4 10^3/uL (0.8-4.8) 03/21/23 23:35 Sierra # (Auto) 0.5 10^3/uL (0.2-0.9) 03/21/23 23:35 Eos # (Auto) 0.2 10^3/uL (0.0-0.8) 03/21/23 23:35 Baso # (Auto) 0.1 10^3/uL (0.0-0.1) 03/21/23 23:35 Nucleated RBC % (auto) 0 % 03/21/23 23:35 Nucleated RBCs # 0.0 /100WBC 03/21/23 23:35 XR interpretation done by ED provider, pending radiology final review Discharge Plan Discharge Patient Disposition: Home Clinical Impression: Rectal prolapse Condition: Stable Prescriptions: No Action Januvia 50 mg tablet 50 mg PO DAILY ferrous sulfate 325 mg (65 mg iron) tablet 325 mg PO DAILY Lantus U-100 Insulin 100 unit/mL solution 26 unit SUBCUT DAILY magnesium oxide 400 mg magnesium tablet 200 mg PO DAILY aspirin [Adult Low Dose Aspirin] 81 mg tablet,delayed release (DR/EC) 81 mg PO DAILY rosuvastatin [Crestor] 40 mg tablet 40 mg PO DAILY docusate sodium 100 mg capsule 100 mg PO DAILY PRN (Reason: Constipation) lisinopril 30 mg tablet 30 mg PO DAILY Xarelto 20 mg tablet 20 mg PO DAILY Qty: 90 3RF Rx Instructions: must administer with evening meal multivitamin [Multiple Vitamins] Tablet 1 tab PO DAILY latanoprost 0.005 % drops 1 drp ophthalmic (eye) BEDTIME omega-3 fatty acids 1,000 mg Capsule 1,000 mg PO DAILY ondansetron 4 mg tablet,disintegrating 4 mg PO Q8H PRN (Reason: nausea and vomiting) Qty: 15 0RF Discharge Orders: Discharge ED (Routine); Ordered 03/21/23 Ordered By: Narendra Dozier Referrals: Cara Harry NP [Primary Care Provider] - Discharge Diet: Usual diet Discharge Activity: Increase activity as tolerated Patient Instructions: Rectal Prolapse (ED) Activity Restrictions/Additional Instructions: Use MiraLAX with coffee daily to avoid constipation. If stools become too loose decrease it to every other day. Try to avoid constipation and straining to prevent rectal prolapse and hemorrhoids. Follow-up with primary care in 1 week for recheck. Return to ED for worsening symptoms or new concerns. Coding Level of Care Code ED Receiving Operator for lBake Gould
--- NOTE | 2023-03-21 23:22 | XRR_ITS ---
PROCEDURE INFORMATION: Exam: XR Abdomen Exam date and time: 03/21/2023 11:35 PM Age: 82 years old Clinical indication: Other: Rectal bleeding; Additional info: Abd pain TECHNIQUE: Imaging protocol: Radiologic exam of the abdomen. Views: Frontal supine view of the abdomen. 1 View. COMPARISON: CT abdomen pelvis con [id number] 03/07/2022 3:41 PM FINDINGS: Gastrointestinal tract: Moderate stool burden. No bowel obstruction. Bones/joints: Unremarkable. XR/XR KUB [id number] IMPRESSION: Moderate stool burden. No bowel obstruction.
[2023-03-21 23:41] LABS: Basophils # 0.1 10^3/uL (0.0-0.1); Basophils % 0.7 %; Eosinophils # 0.2 10^3/uL (0.0-0.8); Eosinophils % 2.4 %; Hematocrit 39.1 % (36-47); Lymphocytes # 1.4 10^3/uL (0.8-4.8); Mean Corpuscular Hemoglobin 31.1 pg (27-33); Mean Corpuscular Volume 91.6 fl (85-98); Mean Platelet Volume 10.6 fL (7.4-10.4); Monocytes # 0.5 10^3/uL (0.2-0.9); Monocytes % 7.1 %; Neutrophils # 4.83 10^3/uL (1.8-7.7); Neutrophils % 69.7 %; Nucleated Red Blood Cells % 0 %; Platelet Count 165 10^3/cmm (157-399); Red Blood Count 4.27 10^6/uL (3.85-5.65); Red Cell Distribution Width 12.2 % (12.1-15.1); White Blood Count 6.94 10^3/uL (3.29-11.43)
[2023-03-22 00:01] LABS: Alanine Aminotransferase 13 U/L (0-33); Albumin Level 3.6 g/dL (3.5-5.2); Alkaline Phosphatase 82 U/L (35-105); Anion Gap 13.3 (5-19); Aspartate Amino Transferase 23 U/L (0-32); Blood Urea Nitrogen 14 mg/dL (8-23); Calcium 9.3 mg/dL (8.5-10.5); Carbon Dioxide 26 mmol/L (22-29); Chloride 104 mmol/L (98-107); Glucose 210 mg/dL (65-115); Osmolality Calculated 295 mOsm/kg (285-295); Potassium 4.3 mmol/L (3.5-5.1); Sodium 139 mmol/L (136-145); Total Bilirubin 0.4 mg/dL (0.15-1.2); Total Protein 6.6 g/dL (6.6-8.7)
--- NOTE | 2023-03-26 09:23 | DCPLANNER ---
Message sent to Gen Surg for follow up - recurrent rectal prolapse
== END 2023-03-22 00:02 | disposition home or self-care (01) ==
PROVIDERS: Emergency Provider Nurse Practitioner Family; PCP Nurse Practitioner Family
DX: K62.3 Rectal prolapse (principal); Z79.82 Long term (current) use of aspirin; Z79.4 Long term (current) use of insulin; E11.9 Type 2 diabetes mellitus without complications; I10 Essential (primary) hypertension; E78.5 Hyperlipidemia, unspecified; Z95.1 Presence of aortocoronary bypass graft
CPT/HCPCS: 74018; 80053; 85025; 99284

== ENCOUNTER → 2023-04-09 09:51 | Outpatient (BNVA) | payer MEDICARE, MEDICAID, SELFPAY | PROVIDERS: PCP Nurse Practitioner Family; Visit Provider Surgery | DX: K62.3 Rectal prolapse (principal) | CPT/HCPCS: 99204 ==

== ENCOUNTER 2023-09-21 18:49 | Emergency (ER) | payer MEDICARE, MEDICAID, SELFPAY ==
[2023-09-21 19:00] VITALS: BP 192/81; PULSE 73; RESP 18; TEMP 36.9; O2SAT 97; BMI 25.0
--- NOTE | 2023-09-21 19:08 | XRR_ITS ---
PROCEDURE INFORMATION: Exam: XR Abdomen Exam date and time: 09/21/2023 7:16 PM Age: 83 years old Clinical indication: Abdominal pain; Generalized; Prior surgery; Surgery date: 6+ months; Surgery type: Cabg; Patient HX: C/O diffuse abd pain with constipation x 3 days. History of rectal prolapse. TECHNIQUE: Imaging protocol: Radiologic exam of the abdomen. Views: Frontal supine view of the abdomen. 1 View. COMPARISON: CR XR KUB [id number] 03/21/2023 11:35 PM FINDINGS: Gastrointestinal tract: Very large amount of fecal material throughout the colon with several air-filled loops of colon throughout the abdomen in a nonobstructive pattern. Intraperitoneal space: No free air or abnormal intraperitoneal calcifications. Bones/joints: Unremarkable. XR/XR KUB portable [id number] IMPRESSION: Mild bloating and severe constipation without bowel obstruction.
--- NOTE | 2023-09-21 19:15 | ED_ITS ---
HPI - Female Genitourinary 2 General: Chief complaint: Urogenital-Female Stated complaint: Kidney pain Time Seen by Provider: 09/21/23 19:07 Source: patient Mode of arrival: ambulatory Limitations: no limitations History of Present Illness: 83-year-old female states that over the last 3 days she has been having some suprapubic pain she states to me with dysuria states the pain is mainly when she tries to urinate she been having increasing frequency some dribbling and felt like she had a UTI. She denies any pain currently rest she is also had some constipation denies any fevers. Associated symptoms: Reports abdominal pain; Deny headache(s) or nausea Review of Systems 2 Const: Denies: fever(s), chills, body aches or change in appetite ENMT: Denies: throat pain or dental pain Card: Denies: chest pain Resp: Denies: dyspnea GI: Reports: abdominal pain; Denies: nausea, vomiting or diarrhea : Reports: dysuria Musc: Denies: neck pain or back pain Skin/Breast: Denies: rash Neuro: Denies: headache(s) PFSH ED 2 PFSH: Medical History ASHD (arteriosclerotic heart disease) Diabetes HTN (hypertension) Dyslipidemia Atrial fibrillation Surgical History (Updated 04/09/23 @ 10:07 by LEONIDES Delcid) S/P CABG (coronary artery bypass graft) Family History Other Diabetes Stroke Social History Smoking and tobacco/nicotine status: never used tobacco/nicotine Alcohol intake: never Household members: children Marital status: / Physical Exam 2 Const: COMMON NORMALS: no acute distress, patient oriented x3 and healthy appearing HENMT: COMMON NORMALS: normocephalic and atraumatic HEAD & SCALP: n ormocephalic and atraumatic Eye: COMMON NORMALS: Equal, round and reactive pupils present and EOMs intact bilaterally PUPIL: Yes Equal, round and reactive pupils present Neck/C-Spine: COMMON NORMALS: full ROM and supple Chest: COMMONS NORMALS: normal inspection of the chest and normal palpation of entire chest wall Resp: COMMON NORMALS: normal respiratory effort, No retractions, No use of accessory muscles and clear to auscultation bilaterally AUSCULTATION: clear to auscultation bilaterally Cardio: COMMON NORMALS: regular rate, regular rhythm and No murmurs present (Cardio) RATE: regular rate RHYTHM: regular rhythm GI: COMMON NORMALS: Normal to inspection, nondistended, normoactive bowel sounds present, Soft to palpation, non-tender and no masses PALPATION: Yes Soft to palpation Extremity: COMMON NORMALS: normal to inspection and full ROM Neuro: COMMON NORMALS: patient oriented x3, moves all extremities and no focal motor deficits Psych: COMMON NORMALS: mental status grossly normal, Normal thought process present and cooperative THOUGHT PROCESS: Normal thought process present Skin: COMMON NORMALS: no rashes or lesions noted and no wounds GENERAL SKIN EXAM: no rashes or lesions noted Course 2 Vital Signs: Vital signs: Vital Signs Temperature 98.5 F 09/21/23 19:00 Pulse Rate 73 09/21/23 19:00 Respiratory Rate 18 09/21/23 19:00 Blood Pressure 192/81 09/21/23 19:00 Pulse Oximetry 97 09/21/23 19:00 Oxygen Delivery Me thod Room Air 09/21/23 19:00 MDM - Female Medical Decision Making Patient presents here with dysuria she was found to have a UTI pains improved here after a bowel movement no signs of kidney stone or acute surgical abdomen she is constipated did have a bowel movement here did give her lactulose will prescribe her Keflex and MiraLAX she is to follow-up with PCP and return if worsening. Medical Records I reviewed the patient's medical records. Lab Data I reviewed the patient's lab results. 09/21/23 19:20 09/21/23 19:20 Radiology Impressions KUB X-Ray 09/21/23 19:08 IMPRESSION: Mild bloating and severe constipation without bowel obstruction. Laboratory Results WBC 7.60 10^3/uL (3.29-11.43) 09/21/23 19:20 RBC 4.35 10^6/uL (3.85-5.65) 09/21/23 19:20 Hgb 13.50 g/dL (11.27-16.99) 09/21/23 19:20 Hct 39.8 % (36-47) 09/21/23 19:20 MCV 91.5 fl (85-98) 09/21/23 19:20 MCH 31.0 pg (27-33) 09/21/23 19:20 MCHC 33.9 g/dL (30-55) 09/21/23 19:20 RDW 12.3 % (12.1-15.1) 09/21/23 19:20 Plt Count 157 10^3/cmm (157-399) 09/21/23 19:20 MPV 11.1 fL (7.4-10.4) H 09/21/23 19:20 Neut % (Auto) 64.7 % 09/21/23 19:20 Lymph % (Auto) 26.7 % 09/21/23 19:20 [place] % (Auto) 7.1 % 09/21/23 19:20 Eos % (Auto) 0.9 % 09/21/23 19:20 Baso % (Auto) 0.5 % 09/21/23 19:20 Neut # (Auto) 4.91 10^3/uL (1.8-7.7) 09/21/23 19:20 Lymph # (Auto) 2.0 10^3/uL (0.8-4.8) 09/21/23 19:20 [place]pson # (Auto) 0.5 10^3/uL (0.2-0.9) 09/21/23 19:20 Eos # (Auto) 0.1 10^3/uL (0.0-0.8) 09/21/23 19:20 Baso # (Auto) 0.0 10^3/uL (0.0-0.1) 09/21/23 19:20 Nucleated RBC % (auto) 0 % 09/21/23 19:20 Nucleated RBCs # 0.0 /100WBC 09/21/23 19:20 Sodium 131 mmol/L (136-145) L 09/21/23 19:20 Potassium 4.0 mmol/L (3.5-5.1) 09/21/23 19:20 Chloride 96 mmol/L (98-107) L 09/21/23 19:20 Carbon Dioxide 25 mmol/L (22-29) 09/21/23 19:20 Anion Gap 14.0 (5-19) 09/21/23 19:20 BUN 17 mg/dL (8-23) 09/21/23 19:20 Creatinine 1.3 mg/dL (0.5-0.9) H 09/21/23 19:20 GFR Calculation Not Reportable 09/21/23 19:20 Glucose 225 mg/dL (65-115) H 09/21/23 19:20 Calculated Osmolality 281 mOsm/kg (285-295) L 09/21/23 19:20 Calcium 8.8 mg/dL (8.5-10.5) 09/21/23 19:20 Total Bilirubin 0.9 mg/dL (0.15-1.2) 09/21/23 19:20 AST 19 U/L (0-32) 09/21/23 19:20 ALT 10 U/L (0-33) 09/21/23 19:20 Alkaline Phosphatase 78 U/L (35-105) 09/21/23 19:20 Total Protein 6.8 g/dL (6.6-8.7) 09/21/23 19:20 Albumin 3.6 g/dL (3.5-5.2) 09/21/23 19:20 Globulin 3.2 g/dL (1.3-4.6) 09/21/23 19:20 Lipase 43 U/L (13-60) 09/21/23 19:20 Urine Color Yellow (Yellow) 09/21/23 18:59 Urine Appearance Cloudy (CLEAR) A 09/21/23 18:59 Urine pH 5 (5-7) 09/21/23 18:59 Ur Specific [place] 1.010 (1.005-1.030) 09/21/23 18:59 Urine Protein Trace (Negative) 09/21/23 18:59 Urine Glucose (UA) 1+ (Normal) H 09/21/23 18:59 Urine Ketones Negative (Negative) 09/21/23 18:59 Urine Blood 3+ (Negative) H 09/21/23 18:59 Urine Nitrate Negative (Negative) 09/21/23 18:59 Urine Bilirubin Neg (Negative) 09/21/23 18:59 Urine Urobilinogen Neg mg/dL (Negative) 09/21/23 18:59 Ur Leukocyte Esterase 2+ (Negative) H 09/21/23 18:59 Urine RBC 5-10 /hpf (0-2) H 09/21/23 18:59 Urine WBC 55-80 /hpf (0-5) H 09/21/23 18:59 Ur Squamous Epith Cells 0-4 /hpf (0-5) H 09/21/23 18:59 Amorphous Sediment Trace /hpf 09/21/23 18:59 Urine Bacteria 1+ /hpf (NONE) H 09/21/23 18:59 Hyaline Casts 0-4 /lpf H 09/21/23 18:59 Urine Mucus Trace /hpf 09/21/23 18:59 All radiology interpretation(s) finalized by discharge Discharge Plan Discharge Patient Disposition: Home Clinical Impression: Acute cystitis, Constipation Condition: Stable Prescriptions: New cephalexin 500 mg capsule 500 mg PO TID 7 Days Qty: 21 0RF Miralax 17 gram powder in packet 17 g PO DAILY PRN (Reason: constipation) Qty: 14 0RF No Action Januvia 50 mg tablet 50 mg PO DAILY ferrous sulfate 325 mg (65 mg iron) tablet 325 mg PO DAILY Lantus U-100 Insulin 100 unit/mL solution 26 unit SUBCUT DAILY magnesium oxide 400 mg magnesium tablet 200 mg PO DAILY aspirin [Adult Low Dose Aspirin] 81 mg tablet,delayed release (DR/EC) 81 mg PO DAILY rosuvastatin [Crestor] 40 mg tablet 40 mg PO DAILY docusate sodium 100 mg capsule 100 mg PO DAILY PRN (Reason: Constipation) lisinopril 30 mg tablet 30 mg PO DAILY brimonidine 0.2 % drops 1 drp ophthalmic (eye) Q8H Xarelto 20 mg tablet See Rx Instructions .ROUTE .COMPLEX Qty: 90 3RF Dose Instruction: TAKE 1 TABLET BY MOUTH EVERY DAY WITH EVENING MEAL Rx Instructions: TAKE 1 TABLET BY MOUTH EVERY DAY WITH EVENING MEAL multivitamin [Multiple Vitamins] Tablet 1 tab PO DAILY omega-3 fatty acids 1,000 mg Capsule 1,000 mg PO DAILY ondansetron 4 mg tablet,disintegrating 4 mg PO Q8H PRN (Reason: nausea and vomiting) Qty: 15 0RF Discharge Orders: Discharge ED (Routine); Ordered 09/21/23 Ordered By: Lizbeth Russell Referrals: Cara Harry FIELD ARTILLERY SENIOR SERGEANT [Primary Care Provider] - Discharge Diet: Advance as tolerated Discharge Activity: Resume usual activity Patient Instructions: Constipation (ED), Urinary Tract Infection in Women (ED) Coding Level of Care Code ED Outreach Professional for Blake Gould
[2023-09-21 19:32] LABS: Basophils % 0.5 %; Eosinophils # 0.1 10^3/uL (0.0-0.8); Eosinophils % 0.9 %; Hematocrit 39.8 % (36-47); Lymphocytes % 26.7 %; Mean Corpuscular HGB Conc 33.9 g/dL (30-55); Mean Corpuscular Volume 91.5 fl (85-98); Mean Platelet Volume 11.1 fL (7.4-10.4); Monocytes # 0.5 10^3/uL (0.2-0.9); Monocytes % 7.1 %; Neutrophils # 4.91 10^3/uL (1.8-7.7); Neutrophils % 64.7 %; Nucleated Red Blood Cells % 0 %; Platelet Count 157 10^3/cmm (157-399); Red Blood Count 4.35 10^6/uL (3.85-5.65); Red Cell Distribution Width 12.3 % (12.1-15.1)
[2023-09-21 19:40] LABS: Add Urine Microscopic? YES; Bacteria Urine 1+ /hpf; Bilirubin Urine Neg (Negative); Blood Urine 3+ (Negative); Glucose Urine UA 1+ (Normal); Ketones Urine Negative (Negative); Leukocyte Esterase Urine 2+ (Negative); Mucus Urine TRACE /hpf; Nitrate Urine Negative (Negative); Protein Urine Trace (Negative); Squamous Epithelial Cell Urine 0-4 /hpf (0-5); Urine Appearance Cloudy (CLEAR); Urine Color Yellow (Yellow); Urobilinogen Urine Neg (Negative); WBC Urine 55-80 /hpf (0-5); pH Urine 5 (5-7)
[2023-09-21 19:41] LABS: Add Urine Culture? Yes; Amorphous Sediment Urine TRACE /hpf; Hyaline Casts Urine 0-4 /lpf
[2023-09-21 19:51] LABS: Alanine Aminotransferase 10 U/L (0-33); Albumin Level 3.6 g/dL (3.5-5.2); Alkaline Phosphatase 78 U/L (35-105); Aspartate Amino Transferase 19 U/L (0-32); Blood Urea Nitrogen 17 mg/dL (8-23); Calcium 8.8 mg/dL (8.5-10.5); Carbon Dioxide 25 mmol/L (22-29); Chloride 96 mmol/L (98-107); Globulin 3.2 g/dL (1.3-4.6); Glucose 225 mg/dL (65-115); Lipase 43 U/L (13-60); Osmolality Calculated 281 mOsm/kg (285-295); Sodium 131 mmol/L (136-145); Total Bilirubin 0.9 mg/dL (0.15-1.2); Total Protein 6.8 g/dL (6.6-8.7)
[2023-09-21] MEDS: lactulose oral liq 20 gm/30 mL UDC 30 GM PO (19:52)
[2023-09-21] MEDS: ondansetron 2 mg/ML SDV 2 mL 4 MG IVP (20:09)
[2023-09-21] MEDS: water for injection-sterile SDV 10 mL 9.6 ML IVP (20:12)
[2023-09-21] MEDS: cefTRIAXone 1,000 mg SDV 1000 MG IVP (20:12)
[2023-09-21 20:41] VITALS: BP 168/84; PULSE 71; RESP 16; TEMP 36.9; O2SAT 98
== END 2023-09-21 20:42 | disposition home or self-care (01) ==
PROVIDERS: Emergency Provider Emergency Medicine; PCP Nurse Practitioner Family
DX: N30.00 Acute cystitis without hematuria (principal); K59.00 Constipation, unspecified; E11.9 Type 2 diabetes mellitus without complications; I10 Essential (primary) hypertension; E78.5 Hyperlipidemia, unspecified; I25.10 Atherosclerotic heart disease of native coronary artery without angina pectoris; Z95.1 Presence of aortocoronary bypass graft
CPT/HCPCS: 36415; 74018; 80053; 81001; 83690; 85025; 87077; 87086; 87186; 96374; 96375; 99285; J0696; J2405

== ENCOUNTER 2024-08-11 12:34 | Emergency (ER) | payer MEDICARE, MEDICAID, SELFPAY ==
[2024-08-11 12:38] VITALS: BP 137/67; PULSE 73; RESP 16; TEMP 36.6; O2SAT 97; BMI 28.3
--- NOTE | 2024-08-11 12:41 | CT_ITS ---
WS: [id number] CT HEAD NONCONTRAST HISTORY: ams TECHNIQUE: Contiguous axial imaging performed through the brain. Bone and soft tissue windows. Sagittal and coronal reformats reviewed. All CT scans at [facility] use at least one of these dose optimization techniques: automated exposure control; mA and/or kV adjustment per patient size (includes targeted exams where dose is matched to clinical indication); or iterative reconstruction. DLP: 947.58 mGy.cm COMPARISON: None available. No acute intracranial hemorrhage, midline shift or mass effect. Mild symmetric atrophy and small vessel disease. No large territory infarct. Ventricles: Normal size with no hydrocephalus. No inferior displacement the cerebellar tonsils. Paranasal sinuses: As visualized are clear. Mastoid air cells: Well pneumatized. Calvarium and scalp: Skull is intact with no soft tissue edema or swelling. Moderate calcified plaque in the intracranial carotid arteries. CT/CT head wo con* [id number] IMPRESSION: 1. No acute intracranial hemorrhage or edema. 2. Mild cerebral atrophy and small vessel disease.
--- NOTE | 2024-08-11 12:41 | XRR_ITS ---
PROCEDURE INFORMATION: Exam: XR Chest Exam date and time: 08/11/2024 12:48 PM Age: 84 years old Clinical indication: Other: AMS TECHNIQUE: Imaging protocol: Radiologic exam of the chest. Views: 1 view. COMPARISON: CR XR chest 1V [id number] 02/14/2019 8:50 AM FINDINGS: Lungs: No consolidation. Pleural spaces: No sizable pleural effusion or pneumothorax. Heart/Mediastinum: No cardiomegaly. Bones/joints: Status post median sternotomy. XR/XR chest 1V portable [id number] IMPRESSION: No acute intrathoracic findings.
--- NOTE | 2024-08-11 12:48 | ECG_ITS ---
[facility] Date: 2024-08[facility]11 Pat Name: Yas Baird Department: Room: Gender: Female Transition Mgr: : 1940 Requested By: Lizbeth Russell Order Number: [id number] Reading MD: Measurements Intervals [place] Rate: 73 P: 81 WV: 148 QRS: 47 QRSD: 78 T: 87 QT: 385 QTc: 425 Interpretive Statements SINUS RHYTHM NONSPECIFIC T-WAVE ABNORMALITY No previous ECG available for comparison [email or web address]
--- NOTE | 2024-08-11 12:48 | CT_ITS ---
WS: [id number] CTA CHEST WITH CT ABDOMEN AND PELVIS. HISTORY: Coughing. Not feeling well. TECHNIQUE: CT angiogram is performed through the chest. Additional imaging is performed through the abdomen and pelvis with IV contrast. Sagittal and coronal reformats have been submitted. MIP imaging also reviewed. All CT scans at [facility] use at least one of these dose optimization techniques: automated exposure control; mA and/or kV adjustment per patient size (includes targeted exams where dose is matched to clinical indication); or iterative reconstruction. Contrast: Omnipaque 350; 95 cc IV. DLP: 866.59 mGy.cm COMPARISON: 03/07/2022 Chest CTA: Good opacification of the pulmonary arteries. Normal size pulmonary artery. No pulmonary embolism. Mild atherosclerosis aorta. No aneurysm. No RIGHT heart strain. Heart size is normal. Prior CABG. No adenopathy. Chronic emphysema. Prior granulomata. No pneumonia. No mass. Mild bronchiectasis at the lung bases. Abdomen CT: Motion artifact. Small hiatal hernia. Normal size liver. Normal portal vein. Cholelithiasis without evidence for acute cholecystitis. No bile duct dilatation. Normal spleen. Pancreas unremarkable with motion artifact. Negative RIGHT adrenal gland. Known 1.7 x 1.7 cm LEFT adrenal mass stable since at least 2018. Atherosclerotic plaque aorta continues into the proximal SMA and celiac axis with mild stenosis. Fat-containing umbilical hernia. No GI tract obstruction. In the central abdomen there is a long segment small bowel stricture with proximal fecalization. This may be a postinflammatory stricture as it extends over several centimeters of the small bowel. Diffuse moderate constipation. No colitis. Pelvic CT: Unremarkable urinary bladder. Atrophic uterus. No destructive bone lesions. Similar changes within the lumbar vertebral bodies as seen on 03/07/2022. CT/CT angio chest w abd pel w con IMPRESSION: 1. Long segment mid small bowel stricture with proximal small bowel fecalizati on. This may be a prior inflammatory stricture due to its length. Mild, incompl ete partial small bowel obstruction. Mild associated small bowel wall thickenin g. Neoplastic stricture not completely excluded. 2. No ascites. 3. No renal obstruction. 4. Cholelithiasis without evidence for acute cholecystitis. 5. Long-term stability LEFT adrenal mass. 6. No pulmonary embolism. 7. No pneumonia.
--- NOTE | 2024-08-11 12:48 | W.ED.BACK ---
HPI - Back Pain/Injury General: Chief Complaint: Back Pain/Injury Stated Complaint: Back/chest pain Time Seen by Provider: 08/11/24 12:34 Source: patient and EMS Mode of arrival: EMS Limitations: altered mental status History of Present Illness: 84-year-old female who had EMS called she has been altered. Patient gets home health she also lives her son but states her son has been sick MS states that he had not seen her in a couple days due to this. Home health aide found her more confused than normal here she is able to tell me her name but is confused to where she is or the date. She complains of some back and chest pain as well. States she feels extremely weak Associated symptoms: Reports fatigue; Deny abdominal pain, chills, fever(s), nausea or vomiting Related Data Home Medications ?Medication ?Instructions ?Recorded ?Confirmed aspirin 81 mg tablet,delayed 81 mg PO DAILY 04/22/19 04/09/23 release (Adult Low Dose Aspirin) insulin glargine 100 unit/mL 26 unit SUBCUT DAILY 04/22/19 04/09/23 subcutaneous solution (Lantus U-100 Insulin) magnesium oxide 200 mg PO DAILY 04/22/19 04/09/23 rosuvastatin 40 mg tablet (Crestor) 40 mg PO DAILY 04/22/19 04/09/23 docusate sodium 100 mg capsule 100 mg PO DAILY PRN Constipation 11/11/19 04/09/23 lisinopril 30 mg tablet 30 mg PO DAILY 11/11/19 04/09/23 multivitamin (Multiple Vitamins 1 tab PO DAILY 12/21/19 04/09/23 tablet) sitagliptin phosphate 50 mg tablet 50 mg PO DAILY 11/09/20 04/09/23 (Januvia) ferrous sulfate 325 mg (65 mg 325 mg PO DAILY 07/13/21 04/09/23 iron) tablet omega-3 fatty acids 1,000 mg 1,000 mg PO DAILY 03/07/22 04/09/23 capsule brimonidine 0.2 % eye drops 1 drp ophthalmic (eye) Q8H 04/09/23 04/09/23 Previous Rx's ?Medication ?Instructions ?Recorded ondansetron 4 mg disintegrating 4 mg PO Q8H PRN nausea and 03/07/22 tablet vomiting #15 tabs polyethylene glycol 3350 17 gram 17 g PO DAILY PRN constipation #14 09/21/23 oral powder packet (Miralax) ea rivaroxaban 20 mg tablet (Xarelto) See Rx Instructions .Route 03/05/24 .COMPLEX #90 tabs Allergies Allergy/AdvReac Type Severity Reaction Status Date / Time ciprofloxacin (From Cipro) Allergy Unknown Unknown Verified 09/21/23 19:05 hydralazine Allergy Unknown Unknown Verified 09/21/23 19:05 metronidazole Allergy Unknown Unknown Verified 09/21/23 19:05 sulfamethoxazole (From Allergy Unknown Unknown Verified 09/21/23 19:05 Bactrim) trimethoprim (From Bactrim) Allergy Unknown Unknown Verified 09/21/23 19:05 amoxicillin (From Augmentin) Allergy ADR-Diarrhe Verified 09/21/23 19:05 a clavulanic acid (From Allergy ADR-Diarrhe Verified 09/21/23 19:05 Augmentin) a tomato Allergy Unknown Verified 09/21/23 19:05 Review of Systems Const: Reports: fatigue; Denies: fever(s), chills, body aches or change in appetite ENMT: Denies: throat pain or dental pain Card: Reports: chest pain Resp: Denies: dyspnea GI: Denies: abdominal pain, nausea, vomiting or diarrhea Musc: Reports: back pain; Denies: neck pain Skin/Breast: Denies: rash Neuro: Reports: confusion; Denies: headache(s) PFSH ED PFSH: Medical History ASHD (arteriosclerotic heart disease) Diabetes HTN (hypertension) Dyslipidemia Atrial fibrillation Surgical History (Updated 04/09/23 @ 10:07 by LEONIDES Delcid) S/P CABG (coronary artery bypass graft) Family History Other Diabetes Stroke Social History Smoking and tobacco/nicotine status: never used tobacco/nicotine Alcohol intake: never Household members: children Marital status: / Physical Exam Const: COMMON NORMALS: negative for patient oriented x3 ORIENTATION/CONSCIOUSNESS: Yes oriented to person; not oriented to place and not oriented to time HENMT: COMMON NORMALS: normocephalic and atraumatic HEAD & SCALP: normocephalic and atraumatic Eye: COMMON NORMALS: conjunctivae normal CONJUNCTIVA: Yes conjunctivae normal Neck/C-Spine: COMMON NORMALS: full ROM and supple Chest: COMMONS NORMALS: normal inspection of the chest Resp: COMMON NORMALS: normal respiratory effort, No retractions, No use of accessory muscles and clear to auscultation bilaterally AUSCULTATION: clear to auscultation bilaterally Cardio: COMMON NORMALS: regular rate, regular rhythm and No murmurs present (Cardio) RATE: regular rate RHYTHM: regular rhythm GI: COMMON NORMALS: Normal to inspection, nondistended, normoactive bowel sounds present, Soft to palpation, non-tender and no masses PALPATION: Yes Soft to palpation Extremity: COMMON NORMALS: normal to inspection and full ROM Neuro: COMMON NORMALS: moves all extremities; negative for patient oriented x3 SENSORIUM/ORIENTATION: Yes oriented to person, No oriented to place and No oriented to time Psych: COMMON NORMALS: Normal thought process present and cooperative; negative for mental status grossly normal THOUGHT PROCESS: Normal thought process present Skin: COMMON NORMALS: no rashes or lesions noted and no wounds GENERAL SKIN EXAM: no rashes or lesions noted Course Vital Signs: Vital signs: Vital Signs Temperature 97.9 F 08/11/24 12:38 Pulse Rate 76 08/11/24 15:58 Respiratory Rate 16 08/11/24 12:38 Blood Pressure 136/87 08/11/24 15:58 Pulse Oximetry 95 08/11/24 15:58 Oxygen Delivery Me thod Room Air 08/11/24 15:04 MDM - Back Pain/Injury Medical Decision Making Patient presents for originally generalized weakness some slight confusion and back in pain. She is much more alert she states she feels improved I did go over her imaging with her she states she has had chronic bowel issues I strongly recommended admission spoke to both her and her son she states she does not want to stay in the hospital she is refused surgery in the past and wants to go home we will discharge at this time she is follow-up with her PCP she is return if she changes her mind or worsen she understands agrees to plan Medical Records I reviewed the patient's medical records. Labs I reviewed the patient's lab results. 08/11/24 13:09 08/11/24 13:09 Radiology Impressions Chest X-Ray 08/11/24 12:41 IMPRESSION: No acute intrathoracic findings. Head CT 08/11/24 12:41 IMPRESSION: 1. No acute intracranial hemorrhage or edema. 2. Mild cerebral atrophy and small vessel disease. Chest/Abdomen/Pelvis CT 08/11/24 12:48 IMPRESSION: 1. Long segment mid small bowel stricture with proximal small bowel fecalization. This may be a prior inflammatory stricture due to its length. Mild, incomplete partial small bowel obstruction. Mild associated small bowel wall thickening. Neoplastic stricture not completely excluded. 2. No ascites. 3. No renal obstruction. 4. Cholelithiasis without evidence for acute cholecystitis. 5. Long-term stability LEFT adrenal mass. 6. No pulmonary embolism. 7. No pneumonia. Laboratory Results WBC 14.78 10^3/uL (3.29-11.43) H 08/11/24 13:09 RBC 4.99 10^6/uL (3.85-5.65) 08/11/24 13:09 Hgb 15.10 g/dL (11.27-16.99) 08/11/24 13:09 Hct 46.1 % (36-47) 08/11/24 13:09 MCV 92.4 fl (85-98) 08/11/24 13:09 MCH 30.3 pg (27-33) 08/11/24 13:09 MCHC 32.8 g/dL (30-55) 08/11/24 13:09 RDW 12.3 % (12.1-15.1) 08/11/24 13:09 Plt Count 192 10^3/cmm (157-399) 08/11/24 13:09 MPV 10.8 fL (7.4-10.4) H 08/11/24 13:09 Neut % (Auto) 71.0 % 08/11/24 13:09 Lymph % (Auto) 20.1 % 08/11/24 13:09 [place] % (Auto) 6.8 % 08/11/24 13:09 Eos % (Auto) 1.2 % 08/11/24 13:09 Baso % (Auto) 0.5 % 08/11/24 13:09 Neut # (Auto) 10.50 10^3/uL (1.8-7.7) H 08/11/24 13:09 Lymph # (Auto) 3.0 10^3/uL (0.8-4.8) 08/11/24 13:09 [place] # (Auto) 1.0 10^3/uL (0.2-0.9) H 08/11/24 13:09 Eos # (Auto) 0.2 10^3/uL (0.0-0.8) 08/11/24 13:09 Baso # (Auto) 0.1 10^3/uL (0.0-0.1) 08/11/24 13:09 Nucleated RBC % (auto) 0 % 08/11/24 13:09 Nucleated RBCs # 0.0 /100WBC 08/11/24 13:09 PT 14.00 SECONDS (12.1-14.9) 08/11/24 13:09 INR 1.01 (0.8-1.2) 08/11/24 13:09 Specimen Type Arterial 08/11/24 13:19 Sample Site Radial, right 08/11/24 13:19 ABG pH 7.49 (7.35-7.45) H 08/11/24 13:19 ABG pCO2 27.7 mmHg (35-45) L 08/11/24 13:19 ABG pO2 78.1 mmHg (80.0-100.0) L 08/11/24 13:19 ABG PO2/FiO2 Ratio 371 08/11/24 13:19 ABG HCO3 21.2 mmol/L (22-26) L 08/11/24 13:19 ABG Base Excess -0.7 mmol/L (-2.0-2.0) 08/11/24 13:19 Juan Francisco Test Pos 08/11/24 13:19 Hematocrit 47.2 % (37-47) H 08/11/24 13:19 O2 Delivery Device Room air 08/11/24 13:19 FiO2 21.0 % 08/11/24 13:19 Kier Drier ID glc 08/11/24 13:19 Sodium 138 mmol/L (136-145) 08/11/24 13:09 Potassium 4.7 mmol/L (3.5-5.1) 08/11/24 13:09 Chloride 100 mmol/L (98-107) 08/11/24 13:09 Carbon Dioxide 23 mmol/L (22-29) 08/11/24 13:09 Anion Gap 19.7 (5-19) H 08/11/24 13:09 BUN 44 mg/dL (8-23) H 08/11/24 13:09 Creatinine 1.4 mg/dL (0.5-0.9) H 08/11/24 13:09 GFR Calculation Not Reportable 08/11/24 13:09 Glucose 242 mg/dL (65-115) H 08/11/24 13:09 POC Glucose 204 mg/dL (70-110) H 08/11/24 13:04 Calculated Osmolality 305 mOsm/kg (285-295) H 08/11/24 13:09 Calcium 9.5 mg/dL (8.5-10.5) 08/11/24 13:09 Magnesium 1.9 mg/dL (1.7-2.3) 08/11/24 13:09 Total Bilirubin 0.6 mg/dL (0.15-1.2) 08/11/24 13:09 AST 18 U/L (0-32) 08/11/24 13:09 ALT 10 U/L (0-33) 08/11/24 13:09 Alkaline Phosphatase 96 U/L (35-105) 08/11/24 13:09 Troponin T Baseline 18 ng/L (0-10) H 08/11/24 13:09 Troponin T 120 Minute 16.28 ng/L (0-10) H 08/11/24 15:05 Delta Troponin T -1.72 ABS# (0-10) L 08/11/24 15:05 Total Protein 6.8 g/dL (6.6-8.7) 08/11/24 13:09 Albumin 3.8 g/dL (3.5-5.2) 08/11/24 13:09 Globulin 3.0 g/dL (1.3-4.6) 08/11/24 13:09 Lipase 88 U/L (13-60) H 08/11/24 13:09 TSH 1.61 uIU/mL (0.27-4.20) 08/11/24 13:09 Urine Color Yellow (Yellow) 08/11/24 13:51 Urine Appearance Clear (CLEAR) 08/11/24 13:51 Urine pH 6.0 (5-7) 08/11/24 13:51 Ur Specific [place] 1.030 (1.005-1.030) 08/11/24 13:51 Urine Protein Negative (Negative) 08/11/24 13:51 Urine Glucose (UA) 3+ (Normal) H 08/11/24 13:51 Urine Ketones 1+ (Negative) H 08/11/24 13:51 Urine Blood Negative (Negative) 08/11/24 13:51 Urine Nitrate Negative (Negative) 08/11/24 13:51 Urine Bilirubin Negative (Negative) 08/11/24 13:51 Urine Urobilinogen 1.0 mg/dL (Negative) 08/11/24 13:51 Ur Leukocyte Esterase 1+ (Negative) A 08/11/24 13:51 Urine RBC 0-2 /hpf (0-2) 08/11/24 13:51 Urine WBC 6-10 /hpf (0-5) 08/11/24 13:51 Ur Squamous Epith Cells 0-5 /hpf (0-5) 08/11/24 13:51 Amorphous Sediment Not Reportable 08/11/24 13:51 Urine Bacteria None seen /hpf (NONE) 08/11/24 13:51 Hyaline Casts 0.40 /lpf 08/11/24 13:51 Influenza A (PCR) Negative (Negative) 08/11/24 13:05 Influenza Type B (PCR) Negative (Negative) 08/11/24 13:05 RSV (PCR) Negative (Negative) 08/11/24 13:05 SARS-CoV-2 (PCR) Negative (Negative) 08/11/24 13:05 All radiology interpretation(s) finalized by discharge Discharge Plan Discharge Patient Disposition: Home Clinical Impression: Generalized weakness Condition: Stable Prescriptions: No Action Januvia 50 mg tablet 50 mg PO DAILY ferrous sulfate 325 mg (65 mg iron) tablet 325 mg PO DAILY Lantus U-100 Insulin 100 unit/mL solution 26 unit SUBCUT DAILY magnesium oxide 400 mg magnesium tablet 200 mg PO DAILY aspirin [Adult Low Dose Aspirin] 81 mg tablet,delayed release (DR/EC) 81 mg PO DAILY rosuvastatin [Crestor] 40 mg tablet 40 mg PO DAILY docusate sodium 100 mg capsule 100 mg PO DAILY PRN (Reason: Constipation) lisinopril 30 mg tablet 30 mg PO DAILY brimonidine 0.2 % drops 1 drp ophthalmic (eye) Q8H Xarelto 20 mg tablet See Rx Instructions .ROUTE .COMPLEX Qty: 90 3RF Dose Instruction: TAKE 1 TABLET BY MOUTH EVERY DAY WITH EVENING MEAL Rx Instructions: TAKE 1 TABLET BY MOUTH EVERY DAY WITH EVENING MEAL multivitamin [Multiple Vitamins] Tablet 1 tab PO DAILY omega-3 fatty acids 1,000 mg Capsule 1,000 mg PO DAILY ondansetron 4 mg tablet,disintegrating 4 mg PO Q8H PRN (Reason: nausea and vomiting) Qty: 15 0RF Miralax 17 gram powder in packet 17 g PO DAILY PRN (Reason: constipation) Qty: 14 0RF Discharge Orders: Discharge ED (Routine); Ordered 08/11/24 Ordered By: Lizbeth Russell Referrals: Cara Harry NP [Primary Care Provider, Nurse Practitioner] Discharge Diet: Advance as tolerated Discharge Activity: Resume usual activity Patient Instructions: Weakness (ED) Print Language: Yakut Coding Level of Care Code ED Concession Manager for Blake Gould
[2024-08-11 13:11] LABS: Glucose Point of Care 204 mg/dL (70-110)
[2024-08-11 13:21] LABS: Basophils # 0.1 10^3/uL (0.0-0.1); Basophils % 0.5 %; Eosinophils # 0.2 10^3/uL (0.0-0.8); Eosinophils % 1.2 %; Hematocrit 46.1 % (36-47); Lymphocytes % 20.1 %; Mean Corpuscular HGB Conc 32.8 g/dL (30-55); Mean Corpuscular Hemoglobin 30.3 pg (27-33); Mean Corpuscular Volume 92.4 fl (85-98); Mean Platelet Volume 10.8 fL (7.4-10.4); Monocytes % 6.8 %; Nucleated Red Blood Cells % 0 %; Platelet Count 192 10^3/cmm (157-399); Red Blood Count 4.99 10^6/uL (3.85-5.65); Red Cell Distribution Width 12.3 % (12.1-15.1); White Blood Count 14.78 10^3/uL (3.29-11.43)
[2024-08-11 13:31] LABS: INR 1.01 (0.8-1.2)
[2024-08-11 13:31] LABS: ABG PCO2 27.7 mmHg (35-45); ABG PH Result 7.49 (7.35-7.45); Arterial Blood Gas Hematocrit 47.2 % (37-47); Base Excess ABG -0.7 mmol/L (-2.0-2.0); Blood Gas Allen Test Pos; Blood Gas Operator Identificat glc; Blood Gas Sample Site Radial, right; Blood Gas Sample Type Arterial; HCO3 ABG 21.2 mmol/L (22-26); Oxygen Device ROOM AIR; PO2 ABG 78.1 mmHg (80.0-100.0); PO2 FiO2 Ratio Arterial Blood 371
[2024-08-11 13:39] LABS: Troponin(5th) Baseline 18 ng/L (0-10)
[2024-08-11 13:50] LABS: Alanine Aminotransferase 10 U/L (0-33); Albumin Level 3.8 g/dL (3.5-5.2); Alkaline Phosphatase 96 U/L (35-105); Anion Gap 19.7 (5-19); Aspartate Amino Transferase 18 U/L (0-32); Blood Urea Nitrogen 44 mg/dL (8-23); Calcium 9.5 mg/dL (8.5-10.5); Carbon Dioxide 23 mmol/L (22-29); Chloride 100 mmol/L (98-107); Creatinine Clr Calc Pharmacy 27.5354; Glucose 242 mg/dL (65-115); Lipase 88 U/L (13-60); Magnesium 1.9 mg/dL (1.7-2.3); Osmolality Calculated 305 mOsm/kg (285-295); Potassium 4.7 mmol/L (3.5-5.1); Sodium 138 mmol/L (136-145); Thyroid Stimulating Hormone 1.61 uIU/mL (0.27-4.20); Total Bilirubin 0.6 mg/dL (0.15-1.2); Total Protein 6.8 g/dL (6.6-8.7)
[2024-08-11 13:58] LABS: Influenza A NEGATIVE (Negative); Influenza B NEGATIVE (Negative); Respiratory Syncytial Virus Ce NEGATIVE (Negative); SARS-CoV-2 PCR NEGATIVE (Negative)
[2024-08-11 13:59] LABS: Bilirubin Urine Negative (Negative); Blood Urine Negative (Negative); Glucose Urine UA 3+ (Normal); Ketones Urine 1+ (Negative); Leukocyte Esterase Urine 1+ (Negative); Nitrate Urine Negative (Negative); Protein Urine Negative (Negative); Urine Appearance Clear (CLEAR); Urine Color Yellow (Yellow)
[2024-08-11 14:04] LABS: Add Urine Microscopic? YES; Bacteria Urine None Seen /hpf; RBC Urine 0-2 /hpf (0-2); Squamous Epithelial Cell Urine 0-5 /hpf (0-5)
[2024-08-11 14:21] LABS: UA Slide Review UA Slide Review Perf
[2024-08-11] MEDS: iohexol 350 mg/mL 500 mL Btl (per mL) IV (14:35)
[2024-08-11] MEDS: sodium chloride 0.9% 1,000 ML 999 ML IV (14:58)
[2024-08-11 15:04] VITALS: BP 130/67; PULSE 70; O2SAT 97
[2024-08-11 15:33] LABS: Troponin 5 2HR 16.28 ng/L (0-10)
[2024-08-11 15:37] LABS: Troponin 5 2HR Delta -1.72 ABS# (0-10)
[2024-08-11 15:58] VITALS: BP 136/87; PULSE 76; O2SAT 95
== END 2024-08-11 15:58 | disposition home or self-care (01) ==
PROVIDERS: Emergency Provider Emergency Medicine; PCP Nurse Practitioner Family
DX: R53.1 Weakness (principal); M54.9 Dorsalgia, unspecified; R07.9 Chest pain, unspecified
CPT/HCPCS: 36415; 36416; 36600; 70450; 71045; 71275; 74177; 80053; 81001; 82803; 82962; 83690; 83735; 84443; 84484; 85025; 85610; 87637; 93005; 99285; J7030